=== PATIENT | male | born 1965 | race Caucasian/White ===

== ENCOUNTER 2018-11-17 09:22 | Inpatient (IN) ==
--- NOTE | 2018-11-17 09:31 | History & Physical Report ---
Date of Encounter: 11/17/18 Time of Encounter: 09:30 24 Hour HP Update - Instructions Instructions: If the History and Physical is less than 30 days old and was completed prior to A.M. admission and or procedure and has NOT been updated on calendar day of procedure please complete this update prior to performing procedure. - Update Patient reports changes in Medical Condition: No Changes in examination, assessment, or condition: No Changes in Medication: No Preop tests/diagnostics Reviewed: Yes Surgery Remains Indicated: Yes Consent for Planned Operative Procedure(s) Verified: Yes - Pre-Operative Checklist Preoperative Checklist Indicated: No Prophylactic Antibiotic Ordered: Yes Is VTE Prophylaxis Indicated?: Yes
[2018-11-17] MEDS ORDERED: CeFAZolin Syr 2,000MG/20 ML 2,000 MG/20 ML SYRINGE IVPB ONE (09:49)
[2018-11-17] MEDS ORDERED: Ringers Solution, Lactated 1,000 ML IVC SCH ×2 (10:00→14:09)
--- NOTE | 2018-11-17 10:08 | Anesthesia Evaluation PreOp ---
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) Other Medical History: Denies Any Significant HX Anesthesia History: No Prior Anesthetic Complications, Past Anesthesia (left total shoulder, R total hip, R knee scope, left ankle repair) Alcohol Use: none Drug use: none Medications and Allergies Docusate [Colace] 100 mg PO BID 10 Days #20 capsule 11/16/18 [Rx] OxyCODONE Immed Rel [Roxicodone 5 MG] 5 mg PO Q6HR PRN 7 Days #28 tablet 11/16/18 [Rx] Allergy/AdvReac Type Severity Reaction Status Date / Time meperidine [From Demerol] Allergy Vomiting Unverified 11/14/18 13:30 - Meds/Allergy Pre-op Review Medications Reviewed: Yes Allergies Reviewed: Yes Beta Blockers on Current Med List: Yes (metoprolol) If Beta Blockers taken, Date/Time (Last Dose taken): 0600 Anesthesia Results - Labs Laboratory Tests 11/14/18 11/14/18 11/14/18 15:40 15:40 15:40 WBC 7.2 Hgb 11.3 L Hct 33.9 L Plt Count 526 H PT 12.0 INR 1.1 APTT 35.4 Sodium 132 L Potassium 5.1 Chloride 98 Carbon Dioxide 27 BUN 21 H Creatinine 0.63 L Est GFR (Non-Af Amer) > 60 - Imaging EKG: report reviewed Anesthesia Exam Vital Signs/O2 Sat/Glucose, Most Recent Temp Pulse Resp BP Pulse Ox 97.8 F 77 18 101/72 99 11/17/18 09:56 11/17/18 09:56 11/17/18 09:56 11/17/18 09:56 11/17/18 09:56 Weight: 56 kg NPO (# of Hours): > 8 hr - HEENT Pupil (Motor): Pupils equal Mallampati: II Teeth: Normal Oral Opening: Greater than 3 - EXTRACTOR PULLER LOC: Oriented EXTRACTOR P[employer]ER Motor: Normal RUE, Normal LUE, Normal RLE, Normal LLE, Normal Face EXTRACTOR P[employer]ER Sensory: Normal: RUE, LUE, RLE, LLE, Face - Cardiac Rhythm: Regular Murmur: None - Pulmonary Breath Sounds: bilateral Clear Respiratory Effort: Symmetrical Anesthesia Assess/Plan ASA Score: 2 Level of consciousness: Cooperative, Oriented, Tranquil Anesthetic Plan: General, Regional Nerve Block Regional Nerve Block Plan: Supraclavicular, Supracervical Plexus, Intercostobracial Monitoring Plan: Standard Monitors Recovery Plan: PACU
[2018-11-17] MEDS ORDERED: *HR* OxyCODONE Immed Rel 5 MG TABLET PO PRN ×2 (10:11→14:09)
[2018-11-17] MEDS ORDERED: Acetaminophen IV 1,000 MG/100 ML INFUS..BTL IVPB ONE (10:11)
[2018-11-17] MEDS ORDERED: *HR* HYDROmorphone (PF) 1 MG/ML SYRINGE IVP PRN (10:11)
[2018-11-17] MEDS ORDERED: *HR* Promethazine 25 MG/ML VIAL IVP PRN (10:11)
[2018-11-17] MEDS ORDERED: Ondansetron 4 MG/2 ML VIAL IVP ONE (10:11)
[2018-11-17] MEDS ORDERED: *HR* Midazolam HCl 2 MG/2 ML VIAL ONE ×2 (10:33→12:26)
[2018-11-17] MEDS ORDERED: *HR* FentaNYL (PF) 100 MCG/2 ML VIAL ONE ×3 (10:33→12:26)
[2018-11-17] MEDS ORDERED: Ethanol\\Acetic Acid\\Na Ace\\Ben 1,000 ML IRRIG.SOLN IR ONE (10:47)
[2018-11-17] MEDS ORDERED: ROPIVACAINE HCL/PF 0.5% 30 ML VIAL ONE ×2 (10:48→10:54)
[2018-11-17] MEDS ORDERED: Bupivacaine/Clonidine Syringe 1 EACH SYRINGE ONE ×2 (10:48→10:54)
--- NOTE | 2018-11-17 11:23 | Anesthesia Procedures ---
Date of Encounter: 11/17/18 Time of Encounter: 11:21 Procedures: Anesthesia - Nerve Block Procedure Date: 11/17/18 Time: 11:21 Allergies/Adv Reactions: meperidine [From Demerol] Adverse Reaction (Verified 11/17/18 11:01) Vomiting Pre-op Diagnosis: left shoulder dislocation Surgical Procedure: left shoulder revision Checklist: Correct Patient Identifier, Correct procedure, History checked Correct side: Left Blood Thinner: No Monitor Applied: BP, Pulse Oximetry Supplemental Oxygen via Nasal Cannula (L/min): 2 Sedation: Versed (mg): 2 Sedation: Fentanyl (mcg): 100 Indication: Post Op Analgesia Pre-op Neuro Deficits: No Block Type: Supraclavicular (30cc 0.5% ropi), Other (SCP 10cc 0.25% bup with clonidine) Catheter placed: No Sterile Technique: Yes Ultrasound used: Yes Anatomy identified: Yes Visual spread of Local: Yes Neuro Stimulation: No Smooth Injection of Local: Yes Pain with Injection of Local: No Prep: Chlorhexadine Needle: 22 x 50 mm Stimuplex Local: 0.25% Bupivicaine w/Clonidine 20 mcg/cc, Ropivacaine Volume (cc): 40 Number of Attempts: 1 Complications: None/effective block
[2018-11-17] MEDS ORDERED: Ondansetron 4 MG/2 ML VIAL ONE (12:26)
[2018-11-17] MEDS ORDERED: Lidocaine -MPF 2% 2 ML VIAL ONE (12:26)
[2018-11-17] MEDS ORDERED: *HR* Succinylcholine 200 MG/10 ML VIAL IVP ONE (12:26)
[2018-11-17] MEDS ORDERED: Dexamethasone 4 MG/ML VIAL ONE (12:26)
[2018-11-17] MEDS ORDERED: Lidocaine -MPF 4% 5 ML AMPUL ONE (12:26)
--- NOTE | 2018-11-17 12:58 | Orthopedic Operative Note ---
Date of procedure: 11/17/18 Pre-op diagnosis: Dislocated revision left total shoulder Post-op diagnosis: same Procedure: Procedure: Total Shoulder Replacment Reverse, revision left Estimated blood loss: 100 cc Hardware: Metal and polyethylene replacement: Arthrex 24, +2 , 3 mm screw glenoid baseplate, , 2 4.5 screws. 2 5.5 screw, 42+4 glenosphere, 42 central metaphysis humeral poly insert 3 Exam Under anesthesia: Restricted motion majority of incision well-healed scab distal third Procedural Notes: Patient with a significantly posteriorly placed glenoid component patient shoulder dislocated anteriorly Operative procedure: The patient was brought to the operating room and placed on the operating room table. After general anesthesia was administered the operative shoulder was examined. Findings were noted. The patient was placed in the modified beachchair position. All pressure points were padded appropriately. And the head was stabilized in the neutral position. The operative extremity was prepped and draped in the sterile surgical fashion. The patient received IV antibiotics prior to skin incision. A standard deltopectoral approach was made to the operative shoulder. Through the old incision, the Incision was made to the skin and subcutaneous tissue,hemo stasis was obtained with Bovie cautery. The distal scab was excised elliptically. Using careful blunt dissection the deltopectoral interval was developed and the clavipectoral fascia was incised. The proximal humerus was exposed, cables were intact and secure. The humeral bone was dislocated anteriorly, humeral metaphysis was removed leaving the stent in place. Examination of the humeral component revealed it to be rotationally stable. Examination the glenoid revealed a significantly posteriorly placed glenoid component. The component was in bone and will fix. Decision was made to reposition this more anteriorly what was felt to be a more anatomic position. The glenoid component was removed without significant bone loss. The glenoid pin was then reposition. He had a superior angle to position the implant and inferior direction. It was reamed and then tapped and a 24 mm, +2, 30 mm screw-in baseplate was secured. It was then fixed with 2 5.5 locking screws, and 2 compression 4.5 screws. Trial reduction with a 39 mm trial +4 sphere was found to be reducible. Decision was made to proceed with a 42+4, The baseplate was irrigated and dried and the 42+4 Glenosphere was seated and secured with the Johnson taper. The Johnson taper was tested and found to be secure, glenosphere fixation was secondarily secured with the central screw. The 42 central metaphysis was attached to the stem, and fixed with the screw. In a 135 degree angle. Trial reduction found the shoulder to be relocatable and stable with the appropriate 3. Trial component was removed and the real implant was seated and secured the shoulder was reduced. The shoulder had excellent motion and excellent stability and no evidence of dislocation. Fluoroscopy at this point confirmed no change in position of the humeral fixation. The deep tissue was irrigated with pulse irrigation. The PA close the shoulder. The deltopectoral interval was closed with a running #1 PDS suture, subcutaneous tissue was irrigated and closed with 0 PDS suture, the skin was closed with skin esther. The patient was placed in a sterile dressing, abduction brace and extubated. The patient was then transferred to the recovery room in stable condition. Anesthesia: ARUN Surgeon: Juanito Phillips Was there an pastoral assistant present: Yes Stitch Separator: Fernanda Egan Estimated blood loss (cc): 100 Condition: stable Disposition: PACU
--- NOTE | 2018-11-17 13:24 | Discharge Summary ---
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 Urena is a 53 year old male status post left Total Shoulder Replacment Reverse, revision 11/17/18 with history of previous TSR-dislocation, osteogenesis imperfecta, HTN. He is to have no shoulder motion so he did not participate in therapy. Postoperative xrays were obtained today and stable, reviewed by Dr. Phillips. He had uneventful hospital course. Stable for discharge. Patient seen at bedside, without complaints. A&O x 3 Afebrile, vital signs stable. Labs reviewed. H/H - 9.6/28.6 stable, asymptomatic. Cr and BUN/Cr stable compared to preop labs. Pain control: adequate NO SHOULDER MOTION. continue in brace at all times only removing for hygiene purposes. OK for elbow/wrist motion and test examiner strength. NONWEIGHTBEARING All questions and concerns addressed. Educated on use of incentive spirometer. Encouraged ambulation and proper hydration. Patient educated on post-operative restrictions and post-operative care. Assessment and plan: Continue with postoperative care Discharge plan: Home , discharge today. - Time Spent with Patient Total time spent providing and/or coordinating discharge services: - Discharge Medications Home Medications: Amitriptyline [Elavil] 25 mg PO HS 11/17/18 [History] Gabapentin [Neurontin] 300 mg PO HS 11/17/18 [History] Lisinopril [Zestril] 40 mg PO DAILY 11/17/18 [History] Metoprolol [Lopressor] 50 mg PO DAILY 11/17/18 [History] Allergies/Adverse Reactions: Allergy/AdvReac Type Severity Reaction Status Date / Time meperidine [From Demerol] AdvReac Vomiting Verified 11/17/18 11:01 Date of admission: 11/17/18 Primary care physician: PCP NONE Discharging clinician: Juanito Phillips Anticipated date of discharge: 11/18/18 Labs on day of discharge: Short CBC 11/18/18 11/17/18 Range/Units 11:04 18:35 Hgb 9.6 L 10.0 L (12.9-16.9) g/dL Hct 28.6 L 30.6 L (37.5-50.1) % BMP 11/18/18 Range/Units 11:04 Sodium 133 L (136-145) mEq/L Potassium 3.8 (3.5-5.1) mEq/L Chloride 99 (98-107) mEq/L Carbon Dioxide 27 (23-29) mEq/L BUN 20 (6-20) mg/dL Creatinine 0.63 L (0.70-1.30) mg/dL Glucose 104 (70-105) mg/dL Calcium 9.3 (8.6-10.3) mg/dL - Impressions ITS Impressions Fluoroscopy 11/17/18 00:00 IMPRESSION: Fluoroscopy was utilized for the purposes of total shoulder arthroplasty revision D/ / Dung Dover MD / Dung Dover MD Interpreting Provider: Dung Dover MD Shoulder X-Ray 11/17/18 00:00 IMPRESSION: Fluoroscopy was utilized for the purposes of total shoulder arthroplasty revision D/ / Dung Dover MD / Dung Dover MD Interpreting Provider: Dung Dover MD - Patient Status Disposition: Home, Self-Care Condition: Good Functional capacity at discharge: independent ambulation Overall status at discharge: patient is back to baseline - Discharge Instructions Follow Up With: NONE,PCP [Primary Care Provider] - Additional Instructions: Discharge Instructions: Total Shoulder Please call [facility] ([phone]), your Primary Care Physician, or report to the Emergency Room if you have any of the following symptoms: Nausea, vomiting, fever greater that 101.5, swelling, chest pain, shortness of breath, increased pain/redness/drainage/odor for your incision site, numbness/tingling, or any other concerning symptoms. ACTIVITY: Always keep your arm in the sling. Do not raise your arm away from your body. Do not use your arm to help with getting in or out of bed. No weight bearing permitted. Only perform those exercises given to you by your therapist. Incentive Spirometer 10 times an hour. MEDICATIONS: Upon discharge resume your home medications. Take all the medications as prescribed. Take a stool softener if taking narcotic pain medications. Stool softeners are only effective if you drink enough fluids. Drink 6-8 glass of water or fluids a day, unless this is not allowed for another health problem. Despite using stool softeners, if you haven't had a bowel movement in 3 days, please switch to a gentle laxative. Gentle laxatives are sold over the counter. You should have a bowel movement within 24 hours, if not call the office. You will be discharged from the hospital with a prescription for pain medication. You are encouraged to decrease the use of narcotic pain medication as tolerated. Should you require a refill, please call the office. [facility] prescribes narcotic pain medication for only 4-6 weeks after surgery. If you require pain medication beyond this time period, you may be referred to your Primary Care Physician or to the Pain Clinic for further evaluation. Plan ahead for refills on pain medication as many narcotics either need to be picked up at the office or mailed. It is best to call 48-72 hours in advance of needing a prescription refill so you don't run out of medication. To help control the post-operative pain, you may take NSAIDs (Aleve,Advil, Motrin, Ibuprofen, Naprosyn) or Tylenol as prescribed on the bottle in addition to the pain medication. WOUND CARE: Leave the dressing on for 7-10 days. You may change the dressing if it becomes saturated greater than 50%. Do not get the dressing wet at anytime. Wash your hands with antibacterial soap, rinse and dry prior to any wound care. If you have esther the visiting nurse or rehab facility can remove the stapes 10-14 days after surgery and place steri-strips across the wound. Leave the steri-strips in place until they fall off on their own. You may let water from the shower run on top of the steri-strips. If you do not have a visiting nurse or rehab facility, you will need to return to the office at 10-14 days for the esther to be removed. If you have itching or redness around the dressing call the office. FOLLOW-UP: Please follow up with your surgeon in the orthopedic clinic, as scheduled - Diet and Activity Activity: other (No shoulder motion, ok for elbow and wrist motion and test examiner strength. wear brace) Diet: advance to your usual diet
--- NOTE | 2018-11-17 13:52 | Anesthesia Evaluation Post Op ---
Date of Encounter: 11/17/18 Time of Encounter: 13:51 - Vital Signs Vital Signs: Vital Signs/O2 Sat, Most Current Temp Pulse Resp BP Pulse Ox 97.4 F L 69 16 101/61 100 11/17/18 13:44 11/17/18 13:44 11/17/18 13:44 11/17/18 13:34 11/17/18 13:44 - Lungs Lungs: Clear Ascult./Percussion - Airway Airway: Non-obstructed - Cardiovascular Regular Rate - Mental Status Mental Status: Alert & Oriented, Answers Appropriately - Pain Pain Scale: 2 Pain Scale used: Numeric (1 - 10) - Nausea Vomiting Nausea Vomiting: Not Present - Hydration Hydration: Ice chips, Has not voided - Discharge PostOp Status: Transfer Patient to floor
[2018-11-17] MEDS ORDERED: Temazepam 15 MG CAPSULE PO PRN (14:09)
[2018-11-17] MEDS ORDERED: Naloxone 0.4 MG/ML INJ IVP PRN (14:09)
[2018-11-17] MEDS ORDERED: traMADol 50 MG TABLET PO PRN (14:09)
[2018-11-17] MEDS ORDERED: Sennosides 8.6 MG TABLET PO PRN (14:09)
[2018-11-17] MEDS ORDERED: MOM Conc 10 ML UD.LIQ PO PRN (14:09)
[2018-11-17] MEDS ORDERED: Ondansetron 4 MG/2 ML VIAL IVP PRN (14:09)
[2018-11-17] MEDS ORDERED: *HR* Enoxaparin 30 MG/0.3 ML SYRINGE SQ SCH (18:00)
[2018-11-17 19:12] LABS: Hematocrit 30.6 % (37.5-50.1)
[2018-11-17] MEDS: *HR* Enoxaparin 30 MG/0.3 ML SYRINGE SQ SCH (19:30)
[2018-11-17] MEDS ORDERED: Gabapentin 300 MG CAPSULE PO SCH (22:30)
[2018-11-18] MEDS: *HR* OxyCODONE/APAP 5/325 TABLET PO PRN ×3 (01:37→12:47)
[2018-11-18] MEDS: *HR* Enoxaparin 30 MG/0.3 ML SYRINGE SQ SCH (06:14)
--- NOTE | 2018-11-18 06:45 | Orthopedics Progress Note ---
Date of Encounter: 11/18/18 Time of Encounter: 06:45 Subjective Interval history: Patient was seen this morning doing well without complaints. Afebrile vital signs stable. Operative extremity: Neurovascularly intact Dressing clean dry and intact Calves nontender Assessment and plan: Continue with postoperative care Obtain an x-ray before discharge plan for discharge today Objective Vital signs: Vital Signs Temp Pulse Resp BP Pulse Ox 11/18/18 04:30 97.5 F L 86 15 108/69 99 11/18/18 00:12 98.1 F 94 15 106/65 98 11/17/18 20:02 98.1 F 95 16 105/64 100 11/17/18 16:26 97.6 F 74 16 107/67 98 11/17/18 15:20 97.6 F 72 16 104/66 100 11/17/18 14:47 97.6 F 69 16 101/57 95 11/17/18 14:20 97.4 F L 61 15 98/61 100 11/17/18 13:54 98.1 F 69 16 99/63 100 11/17/18 13:44 97.4 F L 69 16 99/65 100 11/17/18 13:34 64 16 101/61 100 11/17/18 13:24 69 16 109/87 100 11/17/18 13:14 97.5 F L 71 16 113/68 99 11/17/18 11:20 78 18 106/70 97 11/17/18 10:59 72 18 100/63 100 11/17/18 09:56 97.8 F 77 18 101/72 99 Intake and Output 11/17/18 11/17/18 11/18/18 15:59 23:59 07:59 Intake Total 100 / 100 Output Total 600 / 600 1000 / 1000 650 / 650 Balance -600 / -600 -900 / -900 -650 / -650 Intake: IV Fluids 100 / 100 Ancef 2,000 MG In 0.9 % Sodium 100 / 100 Chloride 100 ML @ 200 mls/hr IVPB Q8H MARAL Rx#:[id number] Output: Urine 400 / 400 1000 / 1000 650 / 650 Estimated Blood Loss 200 / 200 Other: # Voids 1 Weight 56.699 kg 62.6 kg Patient Weight 11/18/18 23:59 Weight 62.6 kg - Labs CBC & BMP: 11/17/18 18:35 Labs: Abnormal lab results Hgb 10.0 g/dL (12.9-16.9) L 11/17/18 18:35 Hct 30.6 % (37.5-50.1) L 11/17/18 18:35 Consult Discharge Plan - Plan Referrals: NONE,PCP [Primary Care Provider] -
[2018-11-18] MEDS ORDERED: Lisinopril 20 MG TABLET PO SCH (09:00)
[2018-11-18 11:07] VITALS: BP 111/71
[2018-11-18 11:34] LABS: Hematocrit 28.6 % (37.5-50.1); Hemoglobin 9.6 g/dL (12.9-16.9)
[2018-11-18 11:44] LABS: BUN/Creatinine Ratio 32 (6-26); Blood Urea Nitrogen 20 mg/dL (6-20); Calcium 9.3 mg/dL (8.6-10.3); Carbon Dioxide 27 mEq/L (23-29); Chloride 99 mEq/L (98-107); Glucose 104 mg/dL (70-105); Osmolality,Calculated 279 (280-300); Potassium 3.8 mEq/L (3.5-5.1); Sodium 133 mEq/L (136-145); eGFR For Non-African Americans > 60 (> 60)
== END 2018-11-18 15:50 | disposition home or self-care (01) | DRG 483 ==
LOC: SAMDAY 09:22 → 3NENU 14:48
PROVIDERS: ADMIT Orthopaedic Surgery; ATTEND Orthopaedic Surgery